=== PATIENT | male | born 1965 | race Caucasian/White ===

== ENCOUNTER 2021-01-01 10:03 | Emergency (ER) | payer OTHER ==
[2021-01-01 10:08] VITALS: BP 130/86; PULSE 108; TEMP 98.1; BMI 28.3
[2021-01-01] MEDS ORDERED: ACETAMINOPHEN 500 MG TABLET (FP) PO ONE (10:55)
[2021-01-01] MEDS ORDERED: ACETAMINOPHEN 325 MG TABLET (FP) ONE (10:57)
[2021-01-01] MEDS ORDERED: FLUORESCEIN NA 1 EA STRIP OS ONE (11:09)
[2021-01-01] MEDS ORDERED: TETRACAINE 0.5% HCL 0.6ML DROPPER.BOTTLE OS ONE (11:11)
[2021-01-01] MEDS ORDERED: TETRACAINE 0.5% OPHTH SOLN 2 ML BOTTLE ONE (11:12)
[2021-01-01] MEDS ORDERED: FLUORESCEIN NA 1 EA STRIP ONE (11:14)
== END 2021-01-01 14:05 ==
LOC: JER 10:03
DX: S02.32XA Fracture of orbital floor, left side, initial encounter for closed fracture (principal)
CPT/HCPCS: 70486-TC; 99284-25

== ENCOUNTER 2023-01-15 22:53 | Emergency (ER) | payer BC, OTHER ==
[2023-01-15] MEDS ORDERED: GLUCAGON 1 MG KIT IM ONE (22:57)
[2023-01-15] MEDS ORDERED: GLUCAGON 1 MG KIT ONE ×2 (22:57→23:07)
[2023-01-15] MEDS ORDERED: DEXTROSE 50%-WATER 25 GM/50 ML DISP.SYRIN ONE ×2 (22:59→23:10)
[2023-01-15] MEDS ORDERED: DEXTROSE 50%-WATER - 25 GM/50 ML VIAL IVPUSH ONE (23:00)
[2023-01-15 23:02] VITALS: BP 163/80; PULSE 118; RESP 18; TEMP 97.4; BMI 32.3
[2023-01-15 23:20] LABS: BASO % 0.4 % (0-2.0); EOS % 3.6 % (0-4.5); HEMATOCRIT 42.4 % (35.4-49); HEMOGLOBIN 13.9 GM/dL (11.7-16.9); LYMPH % 35.4 % (8-40); MCH 28.5 pg (25.7-33.7); MCHC 32.8 g/dl (32.0-35.9); MEAN CELL VOLUME 86.9 fl (80-96); MEAN PLT VOLUME 6.9 fl (7.5-11.1); MONO % 5.6 % (3.8-10.2); PLATELET COUNT 438 10^3/uL (134-434); RBC 4.88 M/mm3 (4.00-5.60); RDW 13.9 % (11.9-15.9); WHITE BLOOD COUNT 17.5 K/mm3 (4.0-10.0)
[2023-01-15 23:53] LABS: CHLORIDE 104 mmol/L (98-107); SODIUM 141 mmol/L (136-145)
[2023-01-15 23:54] LABS: CALCIUM 9.3 mg/dL (8.5-10.1)
[2023-01-15 23:55] LABS: ALBUMIN 4.1 g/dl (3.4-5.0); ANION GAP 17 MMOL/L (8-16); BLOOD UREA NITROGEN 24.5 mg/dL (7-18); CO2 20 mmol/L (21-32)
[2023-01-15 23:58] LABS: CREATININE 0.9 mg/dL (0.55-1.3); SGOT/AST 20 U/L (15-37); SGPT/ALT 27 U/L (13-61)
[2023-01-16] LABS: BILIRUBIN,TOTAL 0.2 mg/dL (0.2-1); TOT PROT 7.3 g/dl (6.4-8.2)
[2023-01-16 00:01] LABS: ALK PHOS 75 U/L (45-117)
[2023-01-16] MEDS ORDERED: POTASSIUM CHLORIDE ORAL LIQUID 20 MEQ/15 ML PO ONE (00:02)
[2023-01-16] MEDS ORDERED: POTASSIUM CHLORIDE ORAL LIQUID 20 MEQ/15 ML ONE (00:05)
[2023-01-16 01:04] LABS: GLUCOSE,RANDOM 35 mg/dL (74-106)
[2023-01-16] MEDS ORDERED: MAGNESIUM SULF 50% (8.12 MEQ/2 ML-1 GM VIAL) IVPB ONE (01:37)
[2023-01-16] MEDS ORDERED: POTASSIUM CHLORIDE TABS 20 MEQ TABLET.ER (FP) PO ONE ×2 (01:37→02:01)
[2023-01-16] MEDS ORDERED: MAGNESIUM SULFATE IN WATER 2 GM/50 ML IVPB IVPB ONE (02:00)
[2023-01-16 02:42] LABS: URINE APPEARANCE CLEAR; URINE BILIRUBIN NEGATIVE (NEGATIVE); URINE COLOR YELLOW; URINE GLUCOSE (UA) TRACE (NEGATIVE); URINE KETONE 2+ (NEGATIVE); URINE LEUK ESTERASE NEGATIVE (NEGATIVE); URINE NITRITE NEGATIVE (NEGATIVE); URINE PROTEIN TRACE (NEGATIVE); URINE UROBILINOGEN 0.2 mg/dL (0.2-1.0)
== END 2023-01-16 03:24 | disposition home or self-care (01) ==
LOC: JER 22:53
PROC: 3E023GC Introduction of Other Therapeutic Substance into Muscle, Percutaneous Approach (ICD-10-PCS; principal; 2023-01-15)
PROC: 3E033GC Introduction of Other Therapeutic Substance into Peripheral Vein, Percutaneous Approach (ICD-10-PCS; principal; 2023-01-15)
DX: E11.649 Type 2 diabetes mellitus with hypoglycemia without coma (principal)
CPT/HCPCS: 36415; 71045-TC-FY; 80053; 80307; 81003; 82962; 85025; 87086; 93005; 93010; 99285-25

== ENCOUNTER 2023-05-04 06:05 | Emergency (ER) | payer BC ==
[2023-05-04 06:10] VITALS: BP 167/96; PULSE 74; RESP 18; TEMP 97.6; BMI 34.7
[2023-05-04] MEDS ORDERED: diazePAM 5 MG TABLET PO ONE (06:18)
[2023-05-04] MEDS ORDERED: LIDOCAINE 5% TOPICAL PATCH TP ONE (06:18)
[2023-05-04] MEDS ORDERED: LIDOCAINE 5% TOPICAL PATCH ONE (06:22)
[2023-05-04] MEDS ORDERED: diazePAM 5 MG TABLET ONE (06:22)
[2023-05-04] MEDS ORDERED: KETOROLAC TROMETHAMINE 30 MG/1 ML VIAL IM ONE (07:48)
[2023-05-04] MEDS ORDERED: ACETAMINOPHEN 500 MG TABLET (FP) PO ONE (07:49)
[2023-05-04] MEDS ORDERED: KETOROLAC TROMETHAMINE 30 MG/1 ML VIAL ONE (07:51)
[2023-05-04] MEDS ORDERED: ACETAMINOPHEN 325 MG TABLET (FP) ONE (07:51)
[2023-05-04] MEDS ORDERED: METHOCARBAMOL 500 MG TABLET PO ONE (08:33)
[2023-05-04] MEDS ORDERED: METHOCARBAMOL 500 MG TABLET ONE (08:55)
[2023-05-04] MEDS ORDERED: LIDOCAINE PATCH REMOVAL MC SCH (22:00)
== END 2023-05-04 09:55 | disposition home or self-care (01) ==
LOC: JER 06:05
PROC: 3E0233Z Introduction of Anti-inflammatory into Muscle, Percutaneous Approach (ICD-10-PCS; principal; 2023-05-04)
DX: M62.830 Muscle spasm of back (principal); M54.50 Low back pain, unspecified; W19.XXXA Unspecified fall, initial encounter; Y93.9 Activity, unspecified; Y92.9 Unspecified place or not applicable
CPT/HCPCS: 93005; 93010; 99284-25